=== PATIENT | male | born 1965 | race Hispanic/Latino ===

== ENCOUNTER 2016-06-13 07:25 | Emergency (ER) | payer OTHER ==
[~2016-06-13] VITALS: Ht 172.7 cm; Wt 75.0 kg
[~2016-06-13 07:25] MED LIST: CHOL10008 PO; FLUT16SP NS; HYDR25SU31 RC; MULT-1018 PO; NPR500T PO; OMEP20TA86 PO
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
[2016-06-13 07:38] VITALS: BP 139/92; PULSE 66; RESP 18; O2SAT 96
[2016-06-13 08:38] VITALS: BP 139/92; PULSE 66; RESP 18; O2SAT 96
== END 2016-06-13 08:40 | disposition home or self-care (01) ==
LOC: SED 07:25
DX: S06.0X0A Concussion without loss of consciousness, initial encounter (principal); S16.1XXA Strain of muscle, fascia and tendon at neck level, initial encounter; W22.09XA Striking against other stationary object, initial encounter; Y93.89 Activity, other specified; Y92.239 Unspecified place in hospital as the place of occurrence of the external cause; Y99.0 Civilian activity done for income or pay; Z88.8 Allergy status to other drugs, medicaments and biological substances

== ENCOUNTER 2016-08-06 09:54 | Emergency (ER) | payer OTHER ==
[2016-08-06 10:02] VITALS: BP 165/93; PULSE 90; RESP 16; O2SAT 98
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
--- NOTE | 2016-08-06 11:26 | DRSVH ---
PROCEDURE: CT CERVICAL SPINE WITHOUT CONTRAST ([id number]) INDICATIONS: 51-year-old male with C3-C4 midline tenderness and left arm tingling TECHNIQUE: Noncontrast 3 mm thick sections acquired from the skull base to the T4 level. Sagittal and coronal r eformats were then constructed. For radiation dose reduction, the following was used: automated exp osure control, adjustment of mA and/or kV according to patient size. COMPARISON: None. FINDINGS: Image quality: Excellent. Bones: No fractures or dislocations. Visualized superior ribs are intact. There is mild C3-C4 throu gh C5-C6 disc degeneration, with posterior disc osteophyte complexes. Soft tissues: Prevertebral soft tissues are normal in thickness. No paravertebral hematomas. No ap ical pneumothoraces. IMPRESSION: Mild mid and lower cervical spine disc degeneration, with normal overall bony alignment. Dictated by: Alberto Bryant M.D. on 08/06/2016 at 11:20 Approved by: Alberto Bryant M.D. on 08/06/2016 at 11:24
[2016-08-06 13:12] VITALS: BP 149/99; PULSE 63; RESP 20; O2SAT 100
== END 2016-08-06 12:43 | disposition home or self-care (01) ==
LOC: SED 09:54
DX: S16.1XXA Strain of muscle, fascia and tendon at neck level, initial encounter (principal); S00.81XA Abrasion of other part of head, initial encounter; T75.89XA Other specified effects of external causes, initial encounter; Y35.811A Legal intervention involving manhandling, law enforcement official injured, initial encounter; Y93.89 Activity, other specified; Y92.9 Unspecified place or not applicable; Y99.0 Civilian activity done for income or pay
CPT/HCPCS: 36415; 72125; 86706; 87340; 99283; G0433

== ENCOUNTER 2016-08-26 15:36 | Emergency (ER) | payer OTHER ==
[~2016-08-26] VITALS: Ht 172.7 cm; Wt 75.9 kg
[2016-08-26 15:50] VITALS: BP 132/95; PULSE 86; RESP 16; O2SAT 98
--- NOTE | 2016-08-26 17:29 | ED.REPORT ---
HPI-Extremity Problem Upper Date of Service Aug 26, 2016 ED Provider: Mallory Chang History of Present Illness: changing bolt on allen, allen fell on 5th left finger around 3 today at home. danielae is primary care. needs tdap. Allen fits on a tractor and is used to dig post holes. right hand dominant Nursing Notes Stated Complaint: LEFT FINGER LAC AND POSS FRACTURE Chief Complaint: Laceration Nursing Notes Reviewed: Yes Allergies: Uncoded Allergies: EAR GTT (Allergy, Severe, 08/22/11) EYE DROPS (Allergy, Severe, inflammation, redness, itching, 09/09/15) Scheduled Cholecalciferol (Vitamin D3) (Vitamin D3) 1,000 Unit Tab.chew 1,000 UNIT PO DAILY Fluticasone Propionate (Fluticasone Propionate Nasal) 16 Gm [place].susp 2 SPRAY NS BID Multivitamin (Multi Vitamin Daily) 1 Each Tablet 1 EACH PO DAILY Omeprazole (Omeprazole) 20 Mg Tablet.dr 20 MG PO DAILY Scheduled PRN Hydrocortisone Acetate (Anusol-Hc) 25 Mg Supp.rect 25 MG RC PRN rectal irrit Naproxen (Naproxen) 500 Mg Tab 500 MG PO BID PRN PRN For Pain General Time Seen by MD: 17:28 Chief Complaint Finger injury left 5 Hx Obtained From: Patient Onset Occurred: 1 - 4 hours ago Symptom Duration: Since onset Caused by: Accidental Location: : Finger left 5 Past Medical History Past Medical History Recent concussion Past Surgical History Reports: Appendectomy Family History Noncontributory Social History Other Social History: Good social support, , 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 Ambulatory Status Independent Review of Systems Basic Review of Systems Eyes: Vision NL, No discharge : No dysuria, No frequency Psychiatric: Normal thought content Physical Exam Initial Vital Signs Vital Signs (First) Date Time Temp Pulse Resp B/P Pulse Ox O2 Delivery O2 Flow Rate FiO2 08/26/16 15:50 36.9 86 16 132/95 98 Room Air Initial VS: Reviewed, Vital signs normal General/Constitutional: Well-developed, Well-nourished Head / Eyes: Atraumatic, Normocephalic, PERRL ENT: Mucous membranes moist, Conjunctiva normal, No scleral icterus Neck: Supple, Non-tender, Full range of motion Respiratory: Breath sounds normal, Clear to auscultation, No respiratory distress Cardiovascular: Regular rate & rhythm, Heart sounds normal, Intact distal pulses Abdomen / GI: Soft, Non-tender, No guarding, No rebound, No distention Back: No CVA tenderness Lymphatic: No lymphadenopathy Lower Extremities: Vascular intact, Neuro intact, No swelling, No tenderness Skin: Warm, Dry, No cyanosis Neurologic: Alert, Oriented, Nonfocal Psychiatric: Mood/affect normal, Behavior normal, Normal thought content General/Constitutional: Awake, Alert, No acute distress, Well appearing, Well developed, Well hydrated Respiratory / Chest: Atraumatic, Breath sounds NL, Breath sounds = bilat Cardiovascular: Heart rate NL, Regular rhythm, Heart sounds NL, No gallop Upper Extremity / MS: Atraumatic, Inspection NL, Full range of motion left 5th finger has missing nail with laceration at the lateral side of the finger. no active bleeding. Has movement in all joints. Interpretation & Diagnostics X-Ray Interpretation Xray Interpretation: PROCEDURE: X-RAY FINGERS, TWO VIEWS INDICATIONS: ring finger injury TECHNIQUE: AP hand, 2 views of the fifth finger(s) acquired. COMPARISON: None. FINDINGS: Bones: There is comminuted, partial amputation-like fracture appearance of the distal tuft of the fifth digit. Soft tissues: No suspicious soft tissue calcifications. Soft tissue laceration is present overlying the distal fifth digit. IMPRESSION: Comminuted amputation like fracture of the fifth distal tuft with overlying soft tissue laceration. Dictated by: Shelley Vences M.D. on 08/26/2016 at 17:43 Approved by: Shelley Vences M.D. on 08/26/2016 at 17:44 Procedures Laceration Management Time: 17:30 Procedure Performed by: Allied health pract Consent / Setup / Site Prep: Informed consent provided, Consent from patient , Hand hygiene observed, Stand sterile technique Location of Wound: left finger tip Wound Length: 1 cm Local Anesthesia: Lidocaine 1% Digital Block: Yes Digit Involved: Little finger left Wound Preparation: Normal saline Debridement: None Irrigation: Copious Repair Skin: ___ O (5), Nylon # Sutures - Skin: 3 Closure Layers: 1 Suture Technique: Simple Post-Procedure / Complications: Antibiotic oint applied, Dressing applied, No complications, Condition improved, Tolerated procedure well, Patient stable Re-Eval/Medical Decision Med Decision/Clinical Course 51 year old male presents for evualation of finger injury which occured just [employer]. X-ray indicates a tuft fracture with most of the nail avulsed. Laceration on lateral side of finger. Has full range of motion. Nail not available for space holding. No sign of compartment syndrome or dislocation. discussed with ortho, will see early next week. Given dose of antibiotics in the ER Discharge & Departure Impression: Primary Impression: Open fracture Disposition: Home Patient Instructions: Finger Fracture (ED) Additional Instructions: You have an open fracture of your 5th finger tip. The wound has been repaired . It has been extensively washed. You are updated on your tdap. You had a dose of IV antibiotics in the ER. I spoke with DR. Arriaga. Please call his office on Monday for an appointment early next week per Dr. Arriaga. Elevate the hand as much as possible. Start keflex 500 mg 3 times a day for 10 days. Use percocet 1 every 4 to 6 hours as needed for severe unrelenting pain. You can purchase a cast protector at any drug store to keep the dressing dry. You are being provided a note for off work 08/26 thru 09/02/2016. 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 Referrals: Castillo Hercules MD (PCP) Lincoln Arriaga DO EDSupervising Provider for APC: Dwayne Briggs DO copies to: Lincoln Arriaga DO; Castillo Hercules MD, Sue ARNP Aug 26, 2016 17:29
[2016-08-26] MEDS ORDERED: PEDS CEFTRIAXONE IV ONE (17:45)
[2016-08-26] MEDS ORDERED: DEXTROSE 5% IV ONE (17:45)
[2016-08-26] MEDS ORDERED: 0.9% Sodium Chloride 1,000 ML IV ONE (17:45)
[2016-08-26] MEDS ORDERED: cefTRIAXone Inj 2,000 MG in Dextrose 5% Minibag Plus 50 ML IV SCH (17:45)
--- NOTE | 2016-08-26 17:46 | DRSVH ---
PROCEDURE: X-RAY FINGERS, TWO VIEWS INDICATIONS: ring finger injury TECHNIQUE: AP hand, 2 views of the fifth finger(s) acquired. COMPARISON: None. FINDINGS: Bones: There is comminuted, partial amputation-like fracture appearance of the distal tuft of the fif th digit. Soft tissues: No suspicious soft tissue calcifications. Soft tissue laceration is present overlying the distal fifth digit. IMPRESSION: Comminuted amputation like fracture of the fifth distal tuft with overlying soft tissue l aceration. Dictated by: Shelley Vences M.D. on 08/26/2016 at 17:43 Approved by: Shelley Vences M.D. on 08/26/2016 at 17:44
[2016-08-26] MEDS ORDERED: TdaP Vaccine 0.5 mL Inj IM ONE (18:05)
[2016-08-26 19:26] VITALS: BP 126/81; PULSE 67; RESP 14; O2SAT 98
== END 2016-08-26 19:27 | disposition home or self-care (01) ==
LOC: SED 15:36
DX: S62.637A Displaced fracture of distal phalanx of left little finger, initial encounter for closed fracture (principal); S61.317A Laceration without foreign body of left little finger with damage to nail, initial encounter; W22.8XXA Striking against or struck by other objects, initial encounter; Y92.89 Other specified places as the place of occurrence of the external cause; Y93.89 Activity, other specified; Y99.8 Other external cause status; Z87.820 Personal history of traumatic brain injury; Z90.89 Acquired absence of other organs; Z88.8 Allergy status to other drugs, medicaments and biological substances; Z23 Encounter for immunization
CPT/HCPCS: 12001; 73140; 90471; 90715; 96361; 96365; 99284; J0696; J7030